=== PATIENT | male | born 1970 | race Asian ===

== ENCOUNTER 2024-01-06 04:49 | Emergency (ER) | payer SELFPAY ==
[~2024-01-06] VITALS: Ht 167.6 cm; Wt 75.0 kg
[2024-01-06 04:56] VITALS: O2SAT 98
[2024-01-06 05:40] LABS: BASOPHILS % 0.2 % (0.0-2.0); EOSINOPHILS % 0.3 % (0.0-5.0); HEMATOCRIT. 40.2 % (42.0-52.0); HEMOGLOBIN. 13.4 g/dL (14.0-18.0); LYMPHOCYTES % 7.8 % (20.0-50.0); MEAN CORPUSCULAR HEMOGLOBIN 28.7 pg (28.0-32.0); MEAN CORPUSCULAR HGB CONC 33.4 g/dL (31.0-37.0); MEAN CORPUSCULAR VOLUME 86.2 fL (80.0-94.0); MEAN PLATELET VOLUME 8.7 fl (7.4-10.4); NEUTROPHILS % 80.7 % (40.0-76.0); PLATELET 240 x1000/uL (130-400); RED BLOOD CELL COUNT 4.67 mill/uL (4.7-6.1); RED CELL DISTRIBUTION WIDTH 17.9 % (11.6-14.6); WHITE BLOOD COUNT 8.8 x1000/uL (4.5-11.0)
[2024-01-06] MEDS: SODIUM CHLORIDE 0.9% 500 ML IV ONE (05:41)
[2024-01-06] MEDS: KETOROLAC 30MG/ML VIAL IV STA (05:48)
[2024-01-06] MEDS: ONDANSETRON HCL 4MG/2ML INJ IV STA (05:49)
[2024-01-06 05:54] LABS: POTASSIUM 3.9 mEq/L (3.5-5.1)
[2024-01-06 05:55] LABS: CALCIUM 8.6 mg/dL (8.7-10.4)
[2024-01-06 06:05] LABS: CREATININE 14.5 mg/dL (0.6-1.3)
[2024-01-06 07:36] VITALS: BP 130/78; PULSE 68; RESP 18; TEMP 97.6
== END 2024-01-06 07:50 | disposition home or self-care (01) ==
LOC: ER 05:09
DX: R11.2 Nausea with vomiting, unspecified (principal); I12.0 Hypertensive chronic kidney disease with stage 5 chronic kidney disease or end stage renal disease; N18.6 End stage renal disease; Z99.2 Dependence on renal dialysis
CPT/HCPCS: 80048; 83690; 85025; 36415; 96361; 96374; 96375; 99284; J1885; J2405; J7030; Z7610